=== PATIENT | male | born 1955 | race Caucasian/White ===

== ENCOUNTER 2017-04-17 14:05 | Emergency (ER) | payer BC ==
[~2017-04-17] VITALS: Ht 172.7 cm; Wt 85.0 kg
[~2017-04-17 14:05] MED LIST: DIOV160T3 PO; METO100T9 PO; PERC5TAB12 PO; PRED50TA PO; ROBA750T3 PO; VENTAER INH
[2017-04-17 14:06] VITALS: BP 156/82; PULSE 84; RESP 15; TEMP 97.7; O2SAT 94
--- NOTE | 2017-04-17 14:25 | PD ---
Physical Exam Date Seen by Provider: April 17, 2017 Time Seen by Provider: 14:23 Narrative 62 yo male here for SOB. Ongoing for a few days. Cough and congestion. SOB worsening which is what made him come. history of COPD. He called his doctor and they told him to come here. Feels like his chest has pressure. Pain is 2/ 10. Vitals sign stable. Patient awaiting bed placement. Data Data Last Documented VS Vital Signs Date Time Temp Pulse Resp B/P Pulse Ox O2 Delivery O2 Flow Rate FiO2 04/17/17 14:06 97.7 84 15 156/82 94 MDM Medical Record Reviewed: Yes Supervised Visit with JAQUI: Albin Quinn April 17, 2017 14:24
[2017-04-17] MEDS ORDERED: methylPREDNISolone SOD SUCC 125 MG/2 ML VIAL IVP ONE (15:00)
[2017-04-17] MEDS ORDERED: SODIUM CHLORIDE 0.9% FLUSH 10 ML FLUSH IVF PRN (15:00)
--- NOTE | 2017-04-17 15:02 | PD ---
HPI Chief Complaint: Respiratory Symptoms Time Seen by Provider: 14:58 Travel History International Travel<30 days: No Contact w/Intl Traveler<30days: No Traveled to known affect area: No History of Present Illness HPI 62-year-old male with a history of COPD and hypertension presents to the emergency department for evaluation of worsening shortness of breath for the past week. Patient states that he has also had a cough with clear sputum. Feels as though he has chest tightness and that he is wheezing. States he has been using his albuterol inhaler more frequently with minimal improvement of symptoms. He denies any fever, chills, nausea, vomiting, lightheadedness, dizziness, swelling of the extremities, chest pain. Denies any recent travel or sick contacts. No other complaints. PFSH Past Medical History Cardiovascular Problems: Yes (HTN) COPD: Yes Diminished Hearing: No Hypertension: Yes Respiratory: Yes (COPD) Social History Alcohol Use: No Tobacco Use: No Substance Use: No Allergies-Medications (Allergen,Severity, Reaction): Coded Allergies: Penicillin (Verified Allergy, Severe, Hives, 04/17/17) Shellfish (Verified Allergy, Severe, 04/17/17) Reported Meds & Prescriptions Reported Meds & Active Scripts Active Duoneb (Ipratropium-Albuterol Neb) 0.5-2.5 Mg/3 Ml Neb 1 Nebule INH Q4HR NEB 30 Days Prednisone 20 Mg Tab 20 Mg PO BID 5 Days Zithromax Z-Garcia (Azithromycin) 250 Mg Dspk 250 Mg PO DIRECTED 500 MG (2 tabs) day 1, then 1 tab days 2-5. Percocet 5-325 mg (Oxycodone/Acetaminophen) Oxycodone 5/325 Acetaminophen Tab 1 Tab PO Q6H PRN Robaxin-750 (Methocarbamol) 750 Mg Tab 750 Mg PO QID PRN Deltasone (Prednisone) 50 Mg Tab 50 Mg PO DAILY 3 Days Reported Ventolin Hfa (Albuterol Sulfate) 18 Gm Aero 1 Puff INH Q4 * SHAKE WELL BEFORE USE * Metoprolol Succinate ER 100 mg (Metoprolol Succinate) 100 Mg Tab 100 Mg PO BID Diovan Hct 160/12.5 (HCTZ/Valsartan) Tab 1 Tab PO DAILY Review of Systems Except as stated in HPI: all other systems reviewed are Neg Physical Exam Narrative GENERAL: Well-nourished and well-developed pleasant patient in no acute distress who is nontoxic appearing. SKIN: Warm and dry. HEAD: Normocephalic and atraumatic. EYES: No injection, drainage, or hyphema noted. PERRLA. EOMI. ENT: No nasal drainage noted. Oropharynx is clear. NECK: Supple and the trachea is midline. CARDIOVASCULAR: Regular rate and rhythm. RESPIRATORY: Bilateral wheezing throughout all lung rosado. No accessory muscle use, rhonchi, or crackles. GASTROINTESTINAL: Abdomen is soft, non-tender, and nondistended. MUSCULOSKELETAL: No obvious deformities, swelling, cyanosis, or ecchymosis is present throughout the upper and lower extremities. Patient has full range of motion without any signs of neurovascular compromise. NEUROLOGICAL: Awake, alert, and oriented. Normal speech and gait. Cranial nerves are grossly intact. Data Data Last Documented VS Vital Signs Date Time Temp Pulse Resp B/P Pulse Ox O2 Delivery O2 Flow Rate FiO2 04/17/17 15:12 20 98 Aerosol Mask 04/17/17 15:10 77 04/17/17 14:06 97.7 156/82 Orders Iv Access Insert/Monitor (04/17/17 14:57) Electrocardiogram (04/17/17 14:57) Ecg Monitoring (04/17/17 14:57) Oximetry (04/17/17 14:57) Chest, Single Ap (04/17/17 14:57) Sodium Chloride 0.9% Flush (Ns Flush) (04/17/17 15:00) Methylprednisolone So Succ Inj (Solumedr (04/17/17 15:00) Albuterol-Ipratropium Neb (Duoneb Neb) (04/17/17 15:00) Methylprednisolone So Succ Inj (Solumedr (04/17/17 15:15) MDM Medical Decision Making Medical Screen Exam Complete: Yes Emergency Medical Condition: Yes Differential Diagnosis COPD exacerbation versus pneumonia versus bronchitis versus influenza Narrative Course 62-year-old male with COPD presents to the emergency department for evaluation of shortness of breath, cough and chest tightness. Patient is afebrile. His oxygen saturation is initially 94% on room air. Otherwise vital signs within normal limits. He has wheezing throughout all lung rosado. He is in no acute distress. Patient is placed on cardiac telemetry and pulse oximetry monitoring. Patient is administered DuoNeb treatments and Solu-Medrol 125 mg IM. EKG shows normal sinus rhythm with no acute ST elevations or depressions. Patient is reassessed after receiving nebulizers and Solu-Medrol and reports great improvement of symptoms. His wheezing has greatly improved on auscultation, he now has only rhonchi bilaterally. Chest x-ray is negative for any acute abnormalities. The patient will be discharged to home with Zithromax , steroids and nebulizers. Advised to follow-up with his PCP in the next several days for recheck. Patient verbalizes understanding and agreement with treatment plan. I discussed the case with my attending physician Dr. Martinez who is aware of the patients history, physical examination findings, and treatment plan. Diagnosis Primary Impression: COPD exacerbation Referrals: Primary Care Physician Patient Instructions: COPD (Chronic Obstructive Pulmonary Disease) (ED), General Instructions Additional Instructions: Use nebulizer as prescribed. Take medications as prescribed with food and a full glass of water. Follow-up with your Primary Care Physician. Return to the ED for any acute worsening of symptoms. Med/Other Pt SpecificInfo: Prescription(s) given Scripts Ipratropium-Albuterol Neb (Duoneb)0.5-2.5 Mg/3 Ml Neb1 Nebule INH Q4HR NEB 30 Days Ref 0 Prov:Lucia Martinez MD 04/17/17 Prednisone 20 Mg Tab20 Mg PO BID 5 Days Ref 0 Prov:Lucia Martinez MD 04/17/17 Azithromycin (Zithromax Z-Garcia)250 Mg [id number] Mg PO DIRECTED #1 DSPK Ref 0 500 MG (2 tabs) day 1, then 1 tab days 2-5. Prov:Lucia Martinez MD 04/17/17 Disposition: 01 DISCHARGE HOME Condition: Stable Kayleigh Holguin April 17, 2017 15:02
[2017-04-17] MEDS: RESP: ALBUTEROL 2.5 MG/IPRATROPIUM 0.5 MG NEB (SCH) INH ×2 (15:05→15:06)
[2017-04-17 15:10] VITALS: PULSE 77; RESP 20; O2SAT 98
--- NOTE | 2017-04-17 15:11 | PD ---
Data Data Last Documented VS Vital Signs Date Time Temp Pulse Resp B/P Pulse Ox O2 Delivery O2 Flow Rate FiO2 04/17/17 14:06 97.7 84 15 156/82 94 Orders Complete Blood Count With Diff (04/17/17 14:57) Basic Metabolic Panel (Bmp) (04/17/17 14:57) Iv Access Insert/Monitor (04/17/17 14:57) Electrocardiogram (04/17/17 14:57) Ecg Monitoring (04/17/17 14:57) Oximetry (04/17/17 14:57) Chest, Single Ap (04/17/17 14:57) Sodium Chloride 0.9% Flush (Ns Flush) (04/17/17 15:00) Methylprednisolone So Succ Inj (Solumedr (04/17/17 15:00) Albuterol-Ipratropium Neb (Duoneb Neb) (04/17/17 15:00) MDM Supervised Visit with JAQUI: Yes Narrative Course I, Dr. Martinez, have reviewed the advance practice practioner's documentation and am in agreement, met with the patient face to face, made the diagnosis, and the medical decision making was done by me. *My assessment and Findings: 62-year-old male with history of COPD, HTN here with complaint of increasing cough, shortness of breath and wheezing for the last week. Minimal, albeit thick sputum production. No fevers or chills. No acute distress on exam but does have diffuse wheezing. Suspect COPD exacerbation versus pneumonia versus bronchitis. Less likely ACS, PE. Twelve- lead EKG was obtained and unremarkable with sinus rhythm. Patient was given Solu-Medrol and DuoNeb swallowing the ER. Chest x-ray was obtained and patient will be to hopefully disposition to home with symptomatic management. Lucia Martinez MD April 17, 2017 15:11
[2017-04-17] MEDS ORDERED: methylPREDNISolone SOD SUCC 125 MG/2 ML VIAL IM ONE (15:15)
[2017-04-17] MEDS ORDERED: PRED20 PO (16:00)
[2017-04-17] MEDS ORDERED: ZITHTAB PO (16:00)
[2017-04-17] MEDS ORDERED: IPRASOL INH (16:00)
--- NOTE | 2017-04-17 16:11 | RADRPT ---
EXAM DATE/TIME: 04/17/2017 15:44 [facility] COMPARISON: CHEST SINGLE AP, February 20, 2016, 20:01. INDICATIONS : Short of breath for 1 week, congestion MEDICAL HISTORY : Chronic obstructive pulmonary disease. SURGICAL HISTORY : None. ENCOUNTER: Initial ACUITY: 1 day PAIN SCORE: 0/10 LOCATION: Bilateral chest FINDINGS: A single view of the chest demonstrates the lungs to be symmetrically aerated without evidence of mas s, infiltrate or effusion. The cardiomediastinal contours are unremarkable. Osseous structures are intact. CONCLUSION: No acute disease. No significant change has occurred. Glenroy Vergara MD on April 17, 2017 at 16:09 Board Certified Radiologist. This report was verified electronically.
--- NOTE | 2017-04-18 09:35 | EKG ---
Date Performed: 04/17/2017 Time Performed: 15:08:24 PTAGE: 62 years EKG: Sinus rhythm NORMAL ECG PREVIOUS TRACING : 02/20/2016 19.48 DOCTOR: Marco Antonio Vicente Interpretating Date/Time 04/18/2017 09:33:47
== END 2017-04-17 16:40 | disposition home or self-care (01) ==
LOC: NEPD 14:05
DX: J44.1 Chronic obstructive pulmonary disease with (acute) exacerbation (principal); I10 Essential (primary) hypertension
CPT/HCPCS: 71010; 93005; 94640; 94664; 96372; 99284; J2930

== ENCOUNTER → 2017-07-26 | Outpatient (CLI) | payer BC ==
[~2017-07-26] MED LIST changes: +IPRASOL INH; +PRED20 PO; +ZITHTAB PO
--- NOTE | 2017-08-01 08:39 | RSPPFT ---
DATE OF PROCEDURE: 07/26/17 COMMENTS: VOLUMES DYNAMIC: FVC moderately reduced; FEV1 severely reduced. STATIC: RV, FRC severely increased; TLC mildly increased. FLOWS: FEV1% and FEF 25-75 severely reduced. DIFFUSION: Mildly reduced. FLOW VOLUME LOOP: Pattern of variable intrathoracic airways obstruction. IMPRESSION: Severe obstructive ventilatory defect with minimal reduction in diffusion. Airways resistance is severely increased. There is significant improvement post-bronchodilator.
--- NOTE | 2017-08-24 09:38 | RSPPFT ---
DATE OF PROCEDURE: 08/22/17 COMMENTS: VOLUMES DYNAMIC: FVC mildly reduced; FEV1 moderately reduced. STATIC: TLC mildly increased; FRC and RV severely increased. FLOWS: FEV1% moderately reduced; FEF 25-75 severely reduced. DIFFUSION: Normal. FLOW VOLUME LOOP: Pattern of variable intrathoracic airways obstruction. IMPRESSION: Moderate to severe obstructive ventilatory defect with no significant reduction in diffusion. Airways resistance is increased. There is significant improvement post-bronchodilator.
== END ==
LOC: PHRSP 08:21
PROVIDERS: ATTEND Internal Medicine
DX: J44.9 Chronic obstructive pulmonary disease, unspecified (principal)
CPT/HCPCS: 94060; 94620; 94726; 94729

== ENCOUNTER → 2017-08-22 | Outpatient (CLI) | payer BC | LOC: PHRSP 07:18 | PROVIDERS: ATTEND Internal Medicine | DX: J44.9 Chronic obstructive pulmonary disease, unspecified (principal) | CPT/HCPCS: 94060; 94620; 94726; 94729 ==